=== PATIENT | female | born 1980 | race Caucasian/White ===

== ENCOUNTER → 2018-11-27 15:35 | Outpatient (CLI) | payer OTHER, SELFPAY ==
[2018-11-27 18:04] LABS: Absolute Lymphocyte Count 2.41 X10^3/ul (0.83-4.51); Basophil# 0.04 X10^3/uL; Basophil% 0.5 % (0-1); Eosinophils% 1.2 % (0-5); Lymphocyte # 2.41 X10^3/ul (4.0); Lymphocyte % 29.7 % (19-41); Mean Corp Hgb Conc 33.3 g/gl (32-36); Mean Corpuscular Hgb 28.6 pg (27.0-32.0); Mean Corpuscular Volume 85.7 fL (81-99); Mean Platelet Vol. 13.4 fl (6.2-12.0); Monocyte# 0.49 X10^3/uL; Neutrophil # 5.04 X10^3/uL (2.7-7.7); Neutrophil % 62.2 % (47-70); Platelet Count 184 K/mm3 (150-450); RBC Distribution Width CV 12.9 % (11.6-14.6); RBC Distribution Width SD 39.4 fl (35.1-43.9); Red Blood Count 4.55 M/mm3 (4.2-5.4); White Blood Count 8.1 K/mm3 (4.4-11.0)
[2018-11-27 18:17] LABS: Vitamin B12 846 pg/mL (211-911)
[2018-11-27 18:19] LABS: POSITIVE COUNT NO; POSITIVE DIFFERENTIAL NO; POSITIVE MORPHOLOGY NO
[2018-11-27 18:27] LABS: ALB/GLOB Ratio 1.1 RATIO (0.9-2.4); AST(SGOT) 11 U/L (15-37); Alanine Aminotransfer ALT/SGPT 21 U/L (13-56); Alkaline Phosphatase 65 U/L (45-117); Anion Gap 5 (5-15); BUN 16 mg/dL (7-18); BUN/Creat Ratio 18.6 RATIO (10-20); Calcium,Total 8.8 mg/dL (8.5-10.1); Chloride 107 mmol/L (98-107); Creatinine, Serum 0.86 mg/dL (0.55-1.02); EST Glomerular Filtration Rate 79 mL/min (>60); Est Glom Filt Rate - Afr Amer 96 mL/min (>60); Follicle Stimulating Hormone 3.1 mIU/mL; Globulin 3.7 g/dL (2.2-4.2); Glucose 81 mg/dL (74-106); Luteinizing Hormone 5.3 mIU/mL; Potassium 3.9 mmol/L (3.5-5.1); Protein, Total 7.7 g/dL (6.4-8.2); Sodium Level 139 mmol/L (136-145); Thyroid Stim Hormone (TSH) 0.82 uIU/mL (0.358-3.74)
[2018-11-30 16:22] LABS: ANTINUCLEAR ANTIBODIES DIRECT Negative (Negative)
[2018-11-30 17:07] LABS: DHEA Sulfate 78.9 ug/dL (57.3-279.2)
== END ==
PROVIDERS: Family Provider Internal Medicine; PCP Internal Medicine; Referring Provider Internal Medicine; Visit Provider Internal Medicine
DX: Z00.00 Encounter for general adult medical examination without abnormal findings (principal); Z13.29 Encounter for screening for other suspected endocrine disorder; Z13.89 Encounter for screening for other disorder; L65.9 Nonscarring hair loss, unspecified; R21 Rash and other nonspecific skin eruption
CPT/HCPCS: 36415; 80053; 82607; 82627; 82746; 83001; 83002; 84443; 85025; 86038; 82626